=== PATIENT | female | born 1940 | race African-American/Black ===

== ENCOUNTER 2021-03-21 14:17 | Outpatient (CLI) | payer MEDICARE, MEDICAID, SELFPAY ==
--- NOTE | ~2021-03-21 | CT_ITS ---
EXAMINATION: CT shoulder RT wo con DATE: 03/21/2021 14:44 INDICATION: Right shoulder pain. TECHNIQUE: Computed tomography (CT) of the right shoulder was performed without intravenous contrast. Automated exposure control and iterative reconstruction technique were employed. The dose-length pro duct was 471.99 mGy-cm. COMPARISON: Right shoulder radiographs 03/06/21 FINDINGS: Calcified right hilar lymph nodes are consistent with old granulomatous disease. Partially visualized is a multinodular goiter. Bone alignment is normal. No fracture. There is severe osteoarth ritis of glenohumeral joint including bone volume loss of the glenoid and humeral head. There is reece re acromioclavicular joint osteoarthritis. There is narrowing of the subacromial space, consistent wi th rotator cuff tear. There is volume loss and severe fatty atrophy of supraspinatus and infraspinatu s muscle bellies. There is a moderate-sized glenohumeral joint effusion. There is moderate subacromia l/subdeltoid bursitis. IMPRESSION: 1. Polyarticular osteoarthritis. 2. Chronic rotator cuff tear. 3. Moderate-sized glenohumeral joint effusion and moderate subacromial/subdeltoid bursitis. Reviewed, dictated and finalized at location A. IMPRESSION: 1. Polyarticular osteoarthritis. 2. Chronic rotator cuff tear. 3. Moderate-sized glenohumeral joint effusion and moderate subacromial/subdelto id bursitis.
== END 2021-03-21 14:18 | disposition home or self-care (01) ==
LOC: ANHIMG 14:21
PROVIDERS: PCP Family Medicine; Visit Provider Orthopaedic Surgery
DX: M19.011 Primary osteoarthritis, right shoulder (principal); M75.101 Unspecified rotator cuff tear or rupture of right shoulder, not specified as traumatic; M25.411 Effusion, right shoulder
CPT/HCPCS: 73200

== ENCOUNTER 2021-04-17 07:56 | Outpatient (CLI) | payer MEDICARE, MEDICAID, SELFPAY ==
--- NOTE | 2021-04-17 09:10 | ECG_ITS ---
Measurements Intervals [place] Rate: 87 P: 47 ME: 184 QRS: -1 QRSD: 105 T: 43 QT: 303 QTc: 365 Interpretive Statements SINUS RHYTHM ATRIAL PREMATURE COMPLEXES EARLY PRECORDIAL R/S TRANSITION NONSPECIFIC ST & T-WAVE ABNORMALITY- HIGH LATERAL LEADS BASELINE ARTIFACT- I, II, III, AVR, AVL, AVF BORDERLINE ECG Electronically Signed On 04-17-2021 9:50:20 CDT by Fercho Correia D.O.
[2021-04-17 10:30] LABS: Basophils Absolute Auto 0.1 K/mm3 (0.0-0.1); Basophils Percent Auto 1.1 % (0.2-1.2); Eosinophils Absolute Auto 0.3 K/mm3 (0-0.3); Eosinophils Percent Auto 4.4 % (0-4.4); Hematocrit 32.5 % (37.0-47.0); Hemoglobin 10.4 g/dL (12.0-15.0); Immature Granulocyte Absolute 0.02 K/mm3 (0.00-0.031); Immature Granulocyte Percent A 0.3 % (0-0.5); Lymphocytes Percent Auto 39.3 % (18.3-44.2); Mean Corpuscular Hemoglobin 26.1 pg (26-34); Mean Corpuscular Volume 81.5 fl (80-100); Mean Platelet Volume 9.4 fl (7.4-10.4); Monocytes Absolute Auto 0.4 K/mm3 (0.1-0.6); Monocytes Percent Auto 6.7 % (2.6-8.5); Neutrophils Absolute Auto 2.9 K/mm3 (1.3-6.7); Neutrophils Percent Auto 48.2 % (45.5-73.1); Platelet Count Result 379 k/mm3 (150-375); Red Blood Count 3.99 M/mm3 (4.2-5.4); Red Cell Distribution Width 16.5 % (11.5-14.5); White Blood Count 6.1 K/mm3 (4.5-10.0)
[2021-04-17 10:42] LABS: Anion Gap 9 mmol/L (8-16); Blood Urea Nitrogen 13 mg/dL (7-17); Calcium 10.2 mg/dL (8.4-10.2); Carbon Dioxide 33 mmol/L (22-30); Chloride 95 mmol/L (98-107); Estimated Glomerular Filt Rate > 60; Glucose 98 mg/dL (65-110); Sodium 137 mmol/L (137-145)
== END 2021-04-17 07:57 | disposition home or self-care (01) ==
LOC: ANHSURGERY 08:00
PROVIDERS: Anesthesiology; PCP Family Medicine; Visit Provider Orthopaedic Surgery
DX: M12.811 Other specific arthropathies, not elsewhere classified, right shoulder (principal); I10 Essential (primary) hypertension; Z01.818 Encounter for other preprocedural examination; R94.31 Abnormal electrocardiogram [ECG] [EKG]
CPT/HCPCS: 36415; 80048; 85025; 87081; 93005

== ENCOUNTER → 2021-05-02 02:38 | Outpatient (CLI) | payer MEDICARE, MEDICAID, SELFPAY ==
[2021-05-02 18:17] LABS: SARS-CoV-2 RNA PCR Positive
== END ==
PROVIDERS: PCP Family Medicine; Visit Provider Orthopaedic Surgery
DX: U07.1 COVID-19 (principal)
CPT/HCPCS: C9803; U0003; U0005

== ENCOUNTER 2021-08-04 12:01 | Outpatient (CLI) | payer MEDICARE, SELFPAY ==
[2021-08-04 12:38] LABS: Basophils Absolute Auto 0.1 K/mm3 (0.0-0.1); Basophils Percent Auto 1.2 % (0.2-1.2); Eosinophils Absolute Auto 0.2 K/mm3 (0-0.3); Eosinophils Percent Auto 3.8 % (0-4.4); Hematocrit 34.8 % (37.0-47.0); Hemoglobin 11.4 g/dL (12.0-15.0); Immature Granulocyte Absolute 0.02 K/mm3 (0.00-0.031); Immature Granulocyte Percent A 0.3 % (0-0.5); Lymphocytes Absolute Auto 2.44 K/mm3 (0.9-3.2); Lymphocytes Percent Auto 42.2 % (18.3-44.2); Mean Corpuscular HGB Conc 32.8 g/dl (32-36); Mean Corpuscular Volume 82.3 fl (80-100); Mean Platelet Volume 9.1 fl (7.4-10.4); Monocytes Absolute Auto 0.4 K/mm3 (0.1-0.6); Monocytes Percent Auto 6.6 % (2.6-8.5); Neutrophils Absolute Auto 2.7 K/mm3 (1.3-6.7); Neutrophils Percent Auto 45.9 % (45.5-73.1); Platelet Count Result 342 k/mm3 (150-375); Red Blood Count 4.23 M/mm3 (4.2-5.4); Red Cell Distribution Width 16.4 % (11.5-14.5); White Blood Count 5.8 K/mm3 (4.5-10.0)
[2021-08-04 12:53] LABS: Anion Gap 8 mmol/L (8-16); Blood Urea Nitrogen 30 mg/dL (7-17); Carbon Dioxide 31 mmol/L (22-30); Chloride 101 mmol/L (98-107); Estimated Glomerular Filt Rate > 60; Glucose 112 mg/dL (65-110); Potassium 4.3 mmol/L (3.4-5.0); Sodium 140 mmol/L (137-145)
== END 2021-08-04 12:02 | disposition home or self-care (01) ==
LOC: ANHSURGERY 12:06
PROVIDERS: Anesthesiology; PCP Family Medicine; Visit Provider Orthopaedic Surgery
DX: M12.811 Other specific arthropathies, not elsewhere classified, right shoulder (principal); Z79.899 Other long term (current) drug therapy; Z01.818 Encounter for other preprocedural examination
CPT/HCPCS: 36415; 80048; 85025; 86850; 86900; 86901; 87081

== ENCOUNTER → 2021-08-05 00:05 | Outpatient (CLI) | payer MEDICARE, SELFPAY ==
[2021-08-05 17:39] LABS: SARS-CoV-2 RNA PCR Negative
== END ==
PROVIDERS: PCP Family Medicine; Visit Provider Orthopaedic Surgery
DX: Z01.812 Encounter for preprocedural laboratory examination (principal); Z20.822 Contact with and (suspected) exposure to COVID-19
CPT/HCPCS: C9803; U0003; U0005

== ENCOUNTER 2021-08-08 01:53 | Day surgery (SDC) | payer OTHER, SELFPAY ==
[2021-04-17 08:08] VITALS: BMI 32.0
[2021-04-17 08:35] VITALS: BP 136/63; PULSE 91; RESP 16; TEMP 36.7; O2SAT 99
[2021-08-03 09:38] VITALS: BMI 32.0
--- NOTE | 2021-08-03 09:55 | PC.NURSE ---
Addendum entered by Viktoria Hartmann RN 08/03/21 10:02: covid test 08/05/21 @ 0950 Original Note: Report to the Outpatient Waiting Room, entrance under the green pavilion located off [facility], at time _0630__ on date _08/08/21__. OR Time: _0830__. - You and your visitor will be asked a series of questions to screen for COVID 19 for your protection. - A mask is required within the hospital. - Only one visitor is allowed at this time. Patient visitors will be guided where to wait when not with patient. Preoperative COVID Testing Requirements: No COVID Test needed if: (proof is required; if not received patient will have Rapid Test prior to entry) - Patient has received COVID Vaccine at least 14 days prior to procedure date or - Patient has positive COVID test result within last 90 days of surgery date. COVID Test needed if above criteria is not met If not COVID vaccinated a COVID test must be conducted within 72 hours of surgery and patient is asked to isolate self from time of testing until procedure. You will go to the [facility] for your COVID testing. The [facility] site is located at the corner of [address] [facility]. COVID TEST SCHEDULED FOR 08/05/21 You will only be called if COVID results are positive and your surgeon may reschedule your elective surgery date. Patients may have clear liquids (water, carbonated beverages, clear teas, apple juice) until 3 hours prior to surgery with a maximum of 20 ounces. - No food from midnight until time of surgery - Infants may have breast milk until 4 hours before surgery, formula 6 hours prior to surgery. - Children will be allowed to drink immediately following surgery. If applicable, please bring a bottle or sippy cup to assist with drinking. Juice, water, soda, and popsicles are readily available. For infants on formula, please bring formula the day of surgery. Pacifiers are allowed. Take the following medications with a SIP of water the morning of surgery: _AMLODIPINE, CYCLOBENZAPRINE & PAIN PILL IF NEEDED__ Medications to discontinue per physician __ALL VITAMINS & SUPPLEMENTS Date to take last dose_08/04/21 Please no make-up, nail romansh, hairspray, perfume, deodorant, or body powder the day of surgery. No jewelry (including any body piercings) or valuables the day of surgery, leave them at home. Please take a shower or bath the night before, or the morning of, surgery with an antibacterial soap. Wear comfortable, loose fitting clothing. Children are encouraged to wear pajamas. - Jewelry must be removed prior to entering the operating room. Rings and piercings that are not removed may be cut off. - The hospital will not accept responsibility for valuables. - Please leave all valuables, including medications, at home the day of surgery. If you are going home after surgery, a licensed hazmat cdl a driver must drive you home. - NO public transportation without another adult. - We recommend that an adult stay with you for 24 hours following discharge. - We also recommend that you do not drive, make important decision, drink alcoholic beverages, or take any drugs that were not prescribed by your health care provider for at least 24 hours after your discharge time. For Pediatric surgeries, we recommend two adults accompany the child home (only one inside the building at this time). Follow any additional instructions given to you from your surgeon. Telephone instructions given to __PT___and asked if any additional questions and then verbalized understanding. Patient advised to call surgeon office or pre surgery nurse liaison [phone] if any additional questions.
[2021-08-08] VITALS (14 sets, daily range): BP systolic 116–137; BP diastolic 51–98; PULSE 55–106; RESP 16–20; TEMP 36.1–37.1; O2SAT 93–100
--- NOTE | ~2021-08-08 | XR_ITS ---
EXAMINATION: XR shoulder RT min 2V DATE: 08/08/2021 11:36 INDICATION: Total right shoulder arthroplasty. Postop. TECHNIQUE: 2 views of right shoulder were obtained. COMPARISON: Right shoulder radiograph 03/06/2021 FINDINGS: There is a reverse [id number]-[id number]-[id number] total right shoulder arthroplasty in near-anatomic align ment. No fracture. There is gas in the soft tissues, consistent with recent surgery. IMPRESSION: 1. Reverse nbln-idf-lesuyw total right shoulder arthroplasty in near-anatomic alignment. Reviewed, dictated and finalized at location A. ERCIAL PROJECT MANAGER IMPRESSION: 1. Reverse lvgb-[id number]-[id number] total right shoulder arthroplasty in near-anatomic a lignment.
[2021-08-08] MEDS: LACTATED RINGERS 1,000 ML 30 ML IV CONT ×2 (06:50→11:16)
[2021-08-08] MEDS: TRANEXAMIC ACID 1,000MG/ISO100 1,000 MG/100 ML BAG 200 MG IVPB (06:52)
--- NOTE | 2021-08-08 07:22 | P.PNAN_ITS ---
Anes - Initial Pre Proc Eval Procedure: Operation Date: 05/05/21 08:00 Proposed Procedures p Right Reverse Total Shoulder Arthroplasty - Joe Nunez MD Operation Date: 08/08/21 08:30 Proposed Procedures p Right Reverse Total Shoulder Arthroplasty - Joe Nunez MD Date/Time: 08/08/21 07:22 Surgeon: Joe Nunez MD Pre Op Diagnosis: right rotator cuff arthropathy Patient Data Age: 81 Gender: F Height: 1.77 m Weight: 99.8 kg Last Vital Signs Temp 36.7 C 04/17/21 08:35 Pulse 91 04/17/21 08:35 Resp 16 04/17/21 08:35 BP 136/63 04/17/21 08:35 Pulse Ox 99 04/17/21 08:35 Allergies Allergy/AdvReac Type Severity Reaction Status Date / Time No Known Allergies Allergy Verified 08/08/21 07:19 Home Medications Medication Instructions Recorded Confirmed Type amlodipine 10 mg PO DAILY 04/17/21 08/08/21 History ascorbic acid (vitamin C) 1 g PO DAILY 04/17/21 08/08/21 History celecoxib 200 mg PO DAILY 04/17/21 08/08/21 History cyclobenzaprine 10 mg PO BID 04/17/21 08/08/21 History garlic 300 mg PO DAILY 04/17/21 08/08/21 History hydrochlorothiazide 25 mg PO DAILY 04/17/21 08/08/21 History hydrocodone-acetaminophen 1 tablet PO PRN PRN 04/17/21 08/08/21 History lisinopril 20 mg PO DAILY 04/17/21 08/08/21 History vitamin A-vitamin D3 1 cap PO DAILY 04/17/21 08/08/21 History vitamin B complex [B Complex] 1 cap PO DAILY 04/17/21 08/08/21 History vitamin E 45 mg PO DAILY 04/17/21 08/08/21 History Patient hx anesthesia problems: none Family hx anesthesia problems: none Results Review: All pre-operative results and documents have been reviewed as part of the pre-operative evaluation. [facility]LY [facility] Past Medical History Medical History (Updated 08/08/21 @ 07:23 by Pedro Soria MD) HTN (hypertension) Obesity Rotator cuff arthropathy of left shoulder Rotator cuff arthropathy of right shoulder Surgical History Surgical History History of knee replacement Family History Family History Mother Family history of arthritis Social History Social History Smoking status: Never smoker Second hand tobacco smoke exposure: No Additional smoking assessment comments: DENIES ALL FORMS OF TOBACCO USE Alcohol intake: never Substance use: never Living arrangements: alone Spiritual care concerns: No Anes - Eval Final PreProcedure Day of Procedure 08/08/21 07:22 Patient weight: obese Heart: regular rate and rhythm Lungs: clear to auscultation Airway: Mallampati scale class II Neurological: alert and oriented Last oral intake: >/= 8 hours ASA classification: III Emergent: no Anesthetic plan: proceed Anesthesia type and monitoring: general ETT and standard monitoring Results Review: All pre-operative results and documents have been reviewed as part of the pre-operative evaluation. Informed Consent: The patient's anesthetic plan and its attendant risks and benefits were discussed with the patient/family/POA. Questions were solicited and answers provided to the satisfaction of the patient/family/POA.
--- NOTE | 2021-08-08 08:08 | WPDHPUPDATE1 ---
History and Physical Update Update Date/Time: 08/08/21 08:08 History and Physical has been reviewed, including an updated exam of the patient. There are NO changes in the patient's condition. Risks, benefits, and alternatives have been discussed and questions answered. Patient agrees to proceed with procedure.
--- NOTE | 2021-08-08 08:25 | WPDANESPNB ---
Anes - Peripheral Nerve Block Date/Time: 08/08/21 08:25 I have discussed with the patient/family/POA the placement of a peripheral nerve block for post-operative pain management, including associated risks, benefits, complications, and side effects. Alternative methods of post-operative analgesia were detailed. Questions were solicited and answers provided to the satisfaction of the patient/family/POA. Time-Out: A pre-procedural Time-Out was completed immediately before starting the procedure and confirmed: Patient Identification, Site, Procedure, Patient Position and the Availability of Requisite Equipment. Clinical Indications: Acute post-operative pain management requested by the operative surgeon. Nerve Block Insertion Note Anes-nerve block: interscalene right Patient position: supine Skin prep: chlorhexidine Needle: 22 gauge, stimulating, insulated echogenic needle. Needle length: 50 mm Technique: ultrasound Injectate: bupivacaine 0.5% with epi 5 mcg/ml (30cc no epi) and dexamethasone (mg) (8) Observations: tolerated well Complications: none Procedure start time:: 805 Procedure end time:: 811
[2021-08-08] MEDS: ceFAZolin 2 GM/D5W 50 ML 2 GM/50 ML BAG IVPB ×3 (08:30→23:53)
[2021-08-08] MEDS: VANCOMYCIN HCL 1,000 MG VIAL 1000 MG TOPICAL (11:02)
[2021-08-08] MEDS: ACETAMINOPHEN 500 MG TABLET 1000 MG PO ×3 (14:31→23:54)
--- NOTE | 2021-08-08 14:38 | ADMGEN ---
This patient, Cortney Diaz, was admitted to 2 Medical Room 257-01. Patient/family oriented to hospital policies and general routines including ID bracelet, bed and alarms, visiting hours, pain management, procedures, bathroom and other care routines, personal items, smoking policy, room service/diet, and visiting hours. Information on how to activate the Rapid Response Team has been discussed. Patient/Family are encouraged to report perceived risks to care and to ask questions if they do not understand what they are told or what they should do.
[2021-08-08] MEDS: CYCLOBENZAPRINE HCL 10 MG TABLET PO (16:31)
[2021-08-08] MEDS: DOCUSATE SODIUM 100 MG CAPSULE PO (16:31)
[2021-08-08] MEDS: ASPIRIN 81 MG ENTERIC TABLET PO (16:31)
--- NOTE | 2021-08-08 16:50 | W.PM.PROC2 ---
Procedure Note - Detailed Date of Procedure 08/08/21 Pre-op Diagnosis Right rotator cuff arthropathy. Post-op Diagnosis same Procedure Performed Reverse total shoulder arthroplasty, right shoulder. Surgeon Joe Nunez MD Buffing Machine Operator Kerline Haynes PA-C Anesthesia general and regional Findings Moderate erosive changes. Massive tear of the supra and infraspinatus. Teres minor intact. Bio-RSA Technique utilized with bone graft from the humeral head applied behind the glenoid base plate. Wedge-shaped graft used to supplement the superior and posterosuperior glenoid. Asymmetric reaming slightly inferior and anterior. Bone quality fair. Trialing confirmed appropriate tension and reduction capability with the lateralized glenosphere. The humeral tray was placed at 12:00. Description of Procedure The patient was given an interscalene block in the preoperative area. Preoperative antibiotics were given. The patient was transferred to the operating room and a general anesthetic was administered. The beach chair position was used at 45 degrees. All bony prominences were padded. The head was carefully stabilized on the [facility] header dock. A sterile prep and drape was performed in the usual manner with Chloraprep. A longitudinal incision was created at the anterior shoulder just lateral to the deltopectoral interval. Careful dissection was performed to expose the interval and protect the cephalic vein. The vein was retracted medially. The upper border of the pectoralis was released. Anterior circumflex vessel branches were suture ligated. The biceps was tenotomized and later tenodesed. A subscapularis peel was performed. The inferior capsule was released, exposing the humeral head. Osteophytes were removed. Care was taken to stay on bone to protect the axillary nerve. The anatomic head cut was taken with the oscillating saw. Sounding and broaching was performed. The neck anteversion and inclination were carefully assessed. Head sizing and offset were determined.The cut protector was placed, and attention was turned to the glenoid. Retractors were placed. Releases were carried out for exposure. The subscapularis was mobilized, the inferior capsule and long head of triceps released, and the superior and middle glenohumeral ligaments released as well. Labral tissue was resected as needed. The sizing template was used to assess the baseplate position low on the glenoid. A guide pin was placed. The two step reaming system was used. Minimal reaming was used to accomplish a flat surface without violating the subchondral bone. Version and inclination were corrected according to preoperative templating. The central post was drilled. The real component was impacted into position. Supplemental screws were placed. The glenosphere was trialed. The lateralized glenosphere was placed with the locking screw. The real humeral stem and tray, and insert were impacted into position. The shoulder was copiously irrigated periodically with pulsatile lavage. The shoulder was reduced and the subscapularis repaired with number 5 Ethibond suture modified radha Emilio sutures. The biceps tenodesis was incorporated with the pectoralis tendon repair. The deltopectoral space was reapproximated with number 2 Vicryl. The remained tissue was closed with 0 Quill and 2-0 Quill running suture and steri-strips. A sterile dressing and shoulder immobilizer was placed. The patient was transferred to the recovery room. Implants Tisha Aequalis reversed glenoid base plate 29 mm, reversed insert 6mm thickness; Aequalis Ascend Flex humeral stem size 3B. Aequalis Reversed II glenoid sphere 36 diameter high offset; Reversed tray low offset Estimated Blood Loss -150.0 Drains No Pathology none sent Complications No immediate complications Condition stable Disposition PACU
[2021-08-08] MEDS: ONDANSETRON INJ 4 MG/2 ML VIAL IV PUSH (18:27)
[2021-08-08] MEDS: FAMOTIDINE 20 MG TABLET PO (20:44)
[2021-08-09 06:23] VITALS: BP 143/64; PULSE 98; RESP 16; TEMP 37.2; O2SAT 97
[2021-08-09] MEDS: ACETAMINOPHEN 500 MG TABLET 1000 MG PO ×2 (07:16→12:22)
--- NOTE | 2021-08-09 07:24 | WPDANESPN ---
Anes - Prog Note Post-Op Date/Time: 08/09/21 07:24 Cardiovascular status: normal Respiratory status: normal Airway patency: baseline Mental status: baseline Post-Op hydration status: normal Vital Signs: Last Vital Signs Temp 37.2 C 08/09/21 06:23 Pulse 98 08/09/21 06:23 Resp 16 08/09/21 06:23 BP 143/64 H 08/09/21 06:23 Pulse Ox 97 08/09/21 06:23 Pain Score (VAS): 2 I/O: Intake & Output 08/08/21 08/08/21 08/09/21 15:59 23:59 07:59 Intake Total 440 730 350 Balance 440 730 350 Post-procedural complaints: none Patient Feedback: Patient satisfied with anesthetic care.
[2021-08-09] MEDS: FAMOTIDINE 20 MG TABLET PO (08:10)
[2021-08-09] MEDS: CELECOXIB 200 MG CAPSULE PO (08:10)
[2021-08-09] MEDS: lisinopriL 20 MG TABLET PO (08:10)
[2021-08-09] MEDS: amLODIPine BESYLATE 5 MG TABLET 10 MG PO (08:11)
[2021-08-09] MEDS: DOCUSATE SODIUM 100 MG CAPSULE PO (08:12)
[2021-08-09] MEDS: CYCLOBENZAPRINE HCL 10 MG TABLET PO (08:12)
[2021-08-09] MEDS: hydroCHLOROthiazide 25 MG TABLET PO (08:12)
[2021-08-09] MEDS: oxyCODONE HCL (*CRX) 5 MG TAB IR 10 MG PO (08:12)
[2021-08-09] MEDS: ceFAZolin 2 GM/D5W 50 ML 2 GM/50 ML BAG IVPB (08:12)
[2021-08-09] MEDS: ASPIRIN 81 MG ENTERIC TABLET PO (08:12)
--- NOTE | 2021-08-09 08:36 | P.DS_ITS ---
DS: Admitting Diagnosis Discharge Date 08/09/21 Admitting Diagnosis Rotator cuff arthropathy. DS: Discharge Diagnosis Discharge Diagnosis (1) Status post reverse total arthroplasty of right shoulder: Code(s): Z96.611 - Presence of right artificial shoulder joint Status: Acute Assessment and Plan: Postop day 1: Right reverse total shoulder arthroplasty. Patient tolerated procedure well. No complications. Pain manageable with pain medication. No numbness or tingling. We had a lengthy discussion regarding postoperative wound care, limitations, expectations, and exercises. Patient shows good understanding. She has had initial physical therapy and is tolerating it well. DVT prophylaxis: 81 mg baby aspirin b.i.d. for 14 days. Compression socks for 3 weeks. Frequent walks. Pain medication: Percocet. Continue home Celebrex. Patient has followup appointment with Dr. Nunez in 3 weeks. DS: Summary Hospital Course Hospital Course: Patient tolerated procedure well. Participated well with PT and OT. Status at Discharge Functional status at discharge: independent ambulation Overall status at discharge: patient is progressing back to baseline Time Spent with Patient Time attestation: Total time spent providing and/or coordinating discharge services: Exam Narrative: Overweight 81 y/o Female. Resting comfortably in bed. Wearing sling. Dressing dry and intact with no drainage. Moderate swelling. Moderate ecchymosis. No erythema. No hematoma. Range of motion limited due to pain. Calf nontender. Neurologic status intact. No varicosities. Distal pulses palpable. Discharge Plan Discharge Patient Disposition: Home, Self-Care Discharge Instructions: See green instruction sheet Patient Instructions: Pain Management (DC), Precautions after Total Joint Replacement Surgery (DC), Shoulder Immobilizer (DC) Follow-up/Referrals: Kerline Haynes PA [Physician Fermenting Cellar Dropper] - Discharge Medications: New aspirin 81 mg tablet,delayed release (DR/EC) 81 mg PO BID 14 Days Qty: 28 RF: 0 oxycodone-acetaminophen 5-325 mg tablet 1 - 2 tablet PO Q4-6H MDD 6 PRN (Reason: pain) Qty: 30 RF: 0 Continued lisinopril 10 mg tablet 20 mg PO DAILY RF: 0 hydrochlorothiazide 12.5 mg capsule 25 mg PO DAILY RF: 0 cyclobenzaprine 10 mg tablet 10 mg PO BID RF: 0 amlodipine 10 mg tablet 10 mg PO DAILY RF: 0 hydrocodone-acetaminophen 10-325 mg tablet 1 tablet PO PRN PRN (Reason: Pain) RF: 0 celecoxib 200 mg capsule 200 mg PO DAILY RF: 0 vitamin A-vitamin D3 5,000-400 unit Capsule 1 cap PO DAILY RF: 0 vitamin B complex Capsule 1 cap PO DAILY RF: 0 ascorbic acid (vitamin C) 1,000 mg Tablet 1 g PO DAILY RF: 0 vitamin E 400 unit Tablet 45 mg PO DAILY RF: 0 garlic 300 mg Tablet 300 mg PO DAILY RF: 0
== END 2021-08-09 12:42 | disposition home or self-care (01) ==
LOC: ANHSURGERY 05:48 → ANH2MED 12:55
PROVIDERS: PCP Family Medicine; Visit Provider Orthopaedic Surgery
PROC: (CPT 23472; principal; 2021-08-08 08:30)
DX: M12.811 Other specific arthropathies, not elsewhere classified, right shoulder (principal); G89.18 Other acute postprocedural pain; I10 Essential (primary) hypertension; E66.9 Obesity, unspecified; Z68.33 Body mass index [BMI] 33.0-33.9, adult
CPT/HCPCS: 23472; 64415; 36415; 73030; 80048; 85025; 86850; 86900; 86901; 87081; 97110; 97116; 97161; 97165; 97530; 97535; A4565; A9270; C1776; C9803; J0171; J0330; J0690; J1100; J1885; J2250; J2270; J2370; J2405; J2704; J2795; J3010; J3370; J7120; U0003; U0005

== ENCOUNTER 2021-11-08 12:56 | Outpatient (CLI) | payer MEDICARE, MEDICAID, SELFPAY ==
--- NOTE | ~2021-11-08 | CT_ITS ---
EXAMINATION: CT shoulder LT wo con DATE: 11/08/2021 13:27 INDICATION: Other specific arthropathies, not elsewhere classified. TECHNIQUE: Computed tomography (CT) of the left shoulder was performed without intravenous contrast. Automated exposure control and iterative reconstruction technique were employed. The dose-length prod uct was 502.51 mGy-cm. COMPARISON: Left shoulder radiographs 03/06/2021 FINDINGS: The acromion undersurface is curved in morphology (type II). There is superior subluxation of humeral head with narrowing of the subacromial space and remodeling of the acromion, consistent wi th chronic rotator cuff tear with cuff arthropathy. There is severe osteoarthritis of glenohumeral ilene int and acromio clavicular joint. There is a large glenohumeral joint effusion communicating with sub acromial/subdeltoid bursitis. There is moderate fatty atrophy of supraspinatus and infraspinatus musc le bellies. IMPRESSION: 1. Severe osteoarthritis of glenohumeral joint and acromioclavicular joint. 2. Chronic rotator cuff tear with cuff arthropathy. 3. Large glenohumeral joint effusion. Reviewed, dictated and finalized at location E. INSTALLER
== END 2021-11-08 12:57 | disposition home or self-care (01) ==
LOC: ANHIMG 12:57
PROVIDERS: PCP Family Medicine; Visit Provider Orthopaedic Surgery
DX: M75.102 Unspecified rotator cuff tear or rupture of left shoulder, not specified as traumatic (principal); M25.412 Effusion, left shoulder; M19.012 Primary osteoarthritis, left shoulder
CPT/HCPCS: 73200

== ENCOUNTER 2021-11-29 13:51 | Outpatient (CLI) | payer MEDICARE, MEDICAID, SELFPAY ==
[2021-11-29 15:03] LABS: Basophils Absolute Auto 0.1 K/mm3 (0.0-0.1); Eosinophils Absolute Auto 0.4 K/mm3 (0-0.3); Eosinophils Percent Auto 5.8 % (0-4.4); Hematocrit 37.3 % (37.0-47.0); Hemoglobin 11.8 g/dL (12.0-15.0); Immature Granulocyte Absolute 0.02 K/mm3 (0.00-0.031); Immature Granulocyte Percent A 0.3 % (0-0.5); Lymphocytes Percent Auto 41.4 % (18.3-44.2); Mean Corpuscular HGB Conc 31.6 g/dl (32-36); Mean Corpuscular Hemoglobin 26.4 pg (26-34); Mean Corpuscular Volume 83.4 fl (80-100); Mean Platelet Volume 9.1 fl (7.4-10.4); Monocytes Absolute Auto 0.5 K/mm3 (0.1-0.6); Monocytes Percent Auto 7.2 % (2.6-8.5); Neutrophils Percent Auto 44.3 % (45.5-73.1); Platelet Count Result 327 k/mm3 (150-375); Red Blood Count 4.47 M/mm3 (4.2-5.4); Red Cell Distribution Width 16.9 % (11.5-14.5); White Blood Count 6.8 K/mm3 (4.5-10.0)
[2021-11-29 15:22] LABS: Anion Gap 10 mmol/L (8-16); Blood Urea Nitrogen 31 mg/dL (7-17); Calcium 9.4 mg/dL (8.4-10.2); Carbon Dioxide 28 mmol/L (22-30); Chloride 103 mmol/L (98-107); Estimated Glomerular Filt Rate > 60; Glucose 111 mg/dL (65-110); Potassium 4.3 mmol/L (3.4-5.0); Sodium 141 mmol/L (137-145)
== END 2021-11-29 13:52 | disposition home or self-care (01) ==
LOC: ANHSURGERY 13:54
PROVIDERS: Anesthesiology; PCP Family Medicine; Visit Provider Orthopaedic Surgery
DX: M25.512 Pain in left shoulder (principal); Z79.899 Other long term (current) drug therapy; Z01.818 Encounter for other preprocedural examination
CPT/HCPCS: 36415; 80048; 85025; 87081

== ENCOUNTER → 2021-12-25 02:42 | Outpatient (CLI) | payer MEDICARE, MEDICAID, SELFPAY ==
[2021-12-25 11:31] LABS: SARS-CoV-2 RNA PCR Negative
== END ==
PROVIDERS: PCP Family Medicine; Visit Provider Orthopaedic Surgery
DX: Z01.812 Encounter for preprocedural laboratory examination (principal); Z20.822 Contact with and (suspected) exposure to COVID-19
CPT/HCPCS: C9803; U0003; U0005

== ENCOUNTER 2021-12-28 01:01 | Day surgery (SDC) | payer MEDICARE, MEDICAID, SELFPAY ==
--- NOTE | 2021-11-29 14:00 | PC.NURSE ---
Report to the Outpatient Waiting Room, entrance under the green pavilion located off [facility], at time _0600_ on date _12/28/21_. OR Time: _0730_. - You and your visitor will be asked a series of questions to screen for COVID 19 for your protection. - A mask is required within the hospital. One visitor will be allowed to accompany the patient into the hospital. Patients visitor will be instructed to remain with patient at all times or leave the building. We will allow the visitor to come back to the postoperative area when patient is ready. Preoperative COVID Testing Requirements: COVID TEST SCHEDULED FOR 12/25/21 @ 0930 COVID test must be conducted within 72 hours of surgery and patient is asked to isolate self from time of testing until procedure. You will go to the [facility] for your COVID testing. The [facility] Testing site is located at the corner of [address] from [facility]. You will only be called if COVID results are positive and your surgeon may reschedule your elective surgery date. Patients may have clear liquids (water, carbonated beverages, clear teas, apple juice) until 3 hours prior to surgery (0430 AM) with a maximum of 20 ounces. - No food from midnight until time of surgery Take the following medications with a SIP of water the morning of surgery: _AMLODIPINE, CYCLOBENZAPRINE_ Medications to discontinue per ANESTHESIA - ALL VITAMINS AND SUPPLEMENTS 3 DAYS PRIOR TO SURGERY, LAST DOSE TO BE TAKEN ON 12/24/21 Please no make-up, nail english, hairspray, perfume, deodorant, or body powder the day of surgery. No jewelry (including any body piercings) or valuables the day of surgery, leave them at home. Please take a shower or bath the night before, or the morning of, surgery with an antibacterial soap. Wear comfortable, loose fitting clothing. Children are encouraged to wear pajamas. - Jewelry must be removed prior to entering the operating room. Rings and piercings that are not removed may be cut off. - The hospital will not accept responsibility for valuables. - Please leave all valuables, including medications, at home the day of surgery. If you are going home after surgery, a licensed regional tanker truck driver must drive you home. - NO public transportation without another adult. - We recommend that an adult stay with you for 24 hours following discharge. - We also recommend that you do not drive, make important decision, drink alcoholic beverages, or take any drugs that were not prescribed by your health care provider for at least 24 hours after your discharge time. Follow any additional instructions given to you from your surgeon. Instructions given to ____PT and asked if any additional questions and then verbalized understanding. Patient advised to call surgeon office or pre surgery nurse liaisonMAGGIE [phone] if any additional questions.
[2021-11-29 14:18] VITALS: BP 160/84; PULSE 96; RESP 20; TEMP 37.1; O2SAT 100; BMI 35.2
--- NOTE | 2021-12-27 15:16 | P.PNAN_ITS ---
Anes - Initial Pre Proc Eval Procedure: Operation Date: 12/28/21 07:30 Proposed Procedures p Reversed Left Total Shoulder Arthroplasty - Joe Nunez MD Date/Time: 12/27/21 15:16 Surgeon: Joe Nunez MD Pre Op Diagnosis: Prim O.A. Left Shoulder Patient Data Age: 81 Gender: F Height: 1.75 m Weight: 108 kg Last Vital Signs Temp 37.1 C 11/29/21 14:18 Pulse 96 11/29/21 14:18 Resp 20 11/29/21 14:18 BP 160/84 H 11/29/21 14:18 Pulse Ox 100 11/29/21 14:18 Allergies Allergy/AdvReac Type Severity Reaction Status Date / Time No Known Allergies Allergy Verified 12/28/21 06:24 Home Medications Medication Instructions Recorded Confirmed Type amlodipine 10 mg PO DAILY 04/17/21 12/28/21 History ascorbic acid (vitamin C) 1 g PO DAILY 04/17/21 12/28/21 History celecoxib 200 mg PO DAILY 04/17/21 12/28/21 History garlic 300 mg PO DAILY 04/17/21 12/28/21 History hydrochlorothiazide 25 mg PO DAILY 04/17/21 12/28/21 History lisinopril 20 mg PO DAILY 04/17/21 12/13/21 History vitamin A-vitamin D3 1 cap PO DAILY 04/17/21 12/28/21 History vitamin B complex 1 cap PO DAILY 04/17/21 12/28/21 History vitamin E 45 mg PO DAILY 04/17/21 12/28/21 History cyclobenzaprine 10 mg PO DAILY 12/28/21 12/28/21 History Patient hx anesthesia problems: none Family hx anesthesia problems: none Results Review: All pre-operative results and documents have been reviewed as part of the pre-operative evaluation. [facility] Past Medical History Medical History HTN (hypertension) Obesity Rotator cuff arthropathy of left shoulder Rotator cuff arthropathy of right shoulder Surgical History Surgical History History of knee replacement Family History Family History Mother Family history of arthritis Social History Social History Smoking status: Never smoker Second hand tobacco smoke exposure: No Additional smoking assessment comments: PT DENIES ALL FORMS OF TOBACCO USE Alcohol intake: never Substance use: never Substance use type: does not use Living arrangements: alone Spiritual care concerns: No Anes - Eval Final PreProcedure Day of Procedure 12/27/21 15:16 Patient weight: obese Heart: regular rate and rhythm Lungs: clear to auscultation and normal air movement Airway: Mallampati scale class II Neurological: alert and oriented Last oral intake: >/= 8 hours ASA classification: III Emergent: no Anesthetic plan: proceed Anesthesia type and monitoring: general ETT Results Review: All pre-operative results and documents have been reviewed as part of the pre-operative evaluation. Informed Consent: The patient's anesthetic plan and its attendant risks and benefits were discussed with the patient/family/POA. Questions were solicited and answers provided to the satisfaction of the patient/family/POA.
[2021-12-28] VITALS (12 sets, daily range): BP systolic 90–149; BP diastolic 42–67; PULSE 79–98; RESP 10–18; TEMP 36.6–37.1; O2SAT 92–100
--- NOTE | ~2021-12-28 | XR_ITS ---
EXAMINATION: XR shoulder LT min 2V DATE: 12/28/2021 10:26 INDICATION: Reverse left total shoulder arthroplasty. TECHNIQUE: AP and transscapular Y views of the left shoulder were obtained. COMPARISON: None FINDINGS: Interval placement of a reverse left total shoulder arthroplasty which is in near-anatomic alignment. No fracture. Mild acromioclavicular osteoarthritis. Small amount of likely postoperative soft tissue gas about the left shoulder. New bandlike opacity at the left midlung zone. IMPRESSION: 1. Expected appearance post reverse left total shoulder arthroplasty. 2. New bandlike opacity in the left midlung zone suggesting discoid atelectasis although pneumonia no t excludable. Reviewed, dictated and finalized at location A. IMPRESSION: 1. Expected appearance post reverse left total shoulder arthroplasty. 2. New bandlike opacity in the left midlung zone suggesting discoid atelectasis although pneumonia not excludable.
[2021-12-28] MEDS: ACETAMINOPHEN 500 MG TABLET 1000 MG PO (06:28)
[2021-12-28] MEDS: LACTATED RINGERS 1,000 ML 30 ML IV CONT ×2 (06:39→10:14)
[2021-12-28] MEDS: TRANEXAMIC ACID 1,000MG/ISO100 1,000 MG/100 ML BAG 200 MG IVPB (07:16)
--- NOTE | 2021-12-28 07:25 | WPDHPUPDATE1 ---
History and Physical Update Update Date/Time: 12/28/21 07:25 History and Physical has been reviewed, including an updated exam of the patient. There are NO changes in the patient's condition. Risks, benefits, and alternatives have been discussed and questions answered. Patient agrees to proceed with procedure. Proceed with left reverse total shoulder arthroplasty.
[2021-12-28] MEDS: ceFAZolin 2 GM/D5W 50 ML 2 GM/50 ML BAG IVPB ×2 (07:34→16:00)
--- NOTE | 2021-12-28 07:34 | WPDANESPNB ---
Anes - Peripheral Nerve Block Date/Time: 12/28/21 07:34 I have discussed with the patient/family/POA the placement of a peripheral nerve block for post-operative pain management, including associated risks, benefits, complications, and side effects. Alternative methods of post-operative analgesia were detailed. Questions were solicited and answers provided to the satisfaction of the patient/family/POA. Time-Out: A pre-procedural Time-Out was completed immediately before starting the procedure and confirmed: Patient Identification, Site, Procedure, Patient Position and the Availability of Requisite Equipment. Clinical Indications: Acute post-operative pain management requested by the operative surgeon. Nerve Block Insertion Note Anes-nerve block: supraclavicular left Patient position: supine Skin prep: chlorhexidine Needle: 22 gauge, stimulating, insulated echogenic needle. Needle length: 80 mm Technique: ultrasound (in plane) Injectate: bupivacaine 0.5% with epi 5 mcg/ml (20cc) Observations: tolerated well Complications: none Procedure start time:: 725 Procedure end time:: 730
[2021-12-28] MEDS: VANCOMYCIN HCL 1,000 MG VIAL 1000 MG TOPICAL (09:44)
--- NOTE | 2021-12-28 11:40 | ADMGEN ---
This patient, Cortney Diaz, was admitted to 2 Medical Room 258-01. Patient/family oriented to hospital policies and general routines including ID bracelet, bed and alarms, visiting hours, pain management, procedures, bathroom and other care routines, personal items, smoking policy, room service/diet, and visiting hours. Information on how to activate the Rapid Response Team has been discussed. Patient/Family are encouraged to report perceived risks to care and to ask questions if they do not understand what they are told or what they should do.
[2021-12-28] MEDS: SODIUM CHLORIDE 0.9% IV 1,000 ML 125 ML IV CONT (11:43)
[2021-12-28] MEDS: CYCLOBENZAPRINE HCL 10 MG TABLET PO (14:49)
[2021-12-28] MEDS: polyethylene glycoL 3350 17 GM POWD.PACK PO (14:49)
[2021-12-28] MEDS: ASPIRIN 81 MG ENTERIC TABLET PO ×2 (14:50→16:01)
[2021-12-28] MEDS: SENNA/DOCUSATE SODIUM TABLET 2 TAB PO ×2 (14:50→16:01)
[2021-12-28] MEDS: FAMOTIDINE 20 MG TABLET PO ×2 (14:50→20:13)
[2021-12-28] MEDS: CELECOXIB 200 MG CAPSULE PO (14:50)
[2021-12-28] MEDS: hydroCHLOROthiazide 25 MG TABLET PO (14:51)
[2021-12-28] MEDS: lisinopriL 20 MG TABLET PO (14:51)
[2021-12-28] MEDS: amLODIPine BESYLATE 5 MG TABLET 10 MG PO (14:51)
--- NOTE | 2021-12-28 15:49 | W.PM.PROC2 ---
Procedure Note - Detailed Date of Procedure 12/28/21 Pre-op Diagnosis Rotator cuff arthropathy, left shoulder. Post-op Diagnosis Same Procedure Performed Reverse left total shoulder arthroplasty. Surgeon Joe Nunez MD Crap Shooter Kerline Haynes PA-C Anesthesia General and Regional (Interscalene block.) Findings Severe degeneration and massive cuff tear. Good bone quality although erosion was significant in the superior and posterior quadrant. The full wedge fit very nicely according the preoperative computer templating. Three dimensional planning placed the maximum wedge augment at about 1:30 a.m. Minimal reaming was required. Good stability and purchase on bone. Description of Procedure The patient was given an interscalene block in the preoperative area. Preoperative antibiotics were given. The patient was transferred to the operating room and a general anesthetic was administered. The beach chair position was used at 45 degrees. All bony prominences were padded. The head was carefully stabilized on the [facility] barrel header. A sterile prep and drape was performed in the usual manner with ChloraPrep. A longitudinal incision was created at the anterior shoulder just lateral to the deltopectoral interval. Hydrogen peroxide was placed on the incision and then rinsed after one minute. Careful dissection was performed to expose the interval and protect the cephalic vein. The vein was retracted medially. The upper border of the pectoralis was released. Anterior circumflex vessel branches were suture ligated. The biceps was tenodesed. A subscapularis tenotomy was performed. The inferior capsule was released, exposing the humeral head. Osteophytes were removed. Care was taken to stay on bone to protect the axillary nerve. The anatomic head cut was taken with the oscillating saw. The guide pin was placed, central drilling performed, and the broach trial inserted. The neck anteversion and inclination were carefully assessed. The cut protector was placed, and attention was turned to the glenoid. Retractors were placed. Releases were carried out for exposure. The subscapularis was mobilized, the inferior capsule and long head of triceps released, and the superior and middle glenohumeral ligaments released as well. Labral tissue was resected as needed. The sizing template was used to assess the baseplate position low on the glenoid. A guide pin was placed. Minimal reaming was used to accomplish a flat surface without violating the subchondral bone. Version was corrected according to preoperative templating. The boss was drilled, and the real component was impacted into position. Supplemental locking screws were placed centrally, superiorly, and inferiorly. The glenosphere was impacted into the taper. The proximal humerus was reamed for the inset component. The humeral components were trialed. The real humeral stem, tray, and insert were impacted into position. The shoulder was copiously irrigated periodically with pulsatile lavage. The shoulder was reduced and stability confirmed. 1 gram of Vancomycin powder was placed in the joint. The biceps tenodesis was incorporated with the pectoralis tendon repair. The subscapularis was repaired back to tendon without undue tension. Multiple 2. And 5. Sutures were used. The deltopectoral space was reapproximated with number 1 Vicryl. The remaining tissue was closed with 0 Quill and 2-0 Quill running suture and steri-strips. A sterile silver occlusive dressing and shoulder immobilizer were placed. The patient was transferred to the recovery room. Physician assistant cook, Kerline Haynes PA-C, required for surgery; including patient positioning, draping, tissue retraction, maintaining instrument position, wound closure, and dressing placement. Implants Louise Tornier reverse Perform Plus shoulder system. 25 mm full wedge augmented base plate. Three locking screws. 36 mm standard glenosphere. Size 4 Ascend flex humeral com
[2021-12-29] MEDS: ceFAZolin 2 GM/D5W 50 ML 2 GM/50 ML BAG IVPB ×2 (00:09→06:38)
[2021-12-29 00:33] VITALS: BP 121/48; PULSE 87; RESP 18; TEMP 36.6; O2SAT 99
[2021-12-29 05:00] VITALS: BP 127/68; PULSE 81; RESP 20; TEMP 36.3; O2SAT 100
--- NOTE | 2021-12-29 08:42 | WPDANESPN ---
Anes - Prog Note Post-Op Date/Time: 12/29/21 08:42 Cardiovascular status: normal Respiratory status: normal Airway patency: baseline Mental status: baseline Post-Op hydration status: normal Vital Signs: Last Vital Signs Temp 36.3 C L 12/29/21 05:00 Pulse 81 12/29/21 05:00 Resp 20 12/29/21 05:00 BP 127/68 12/29/21 05:00 Pulse Ox 100 12/29/21 05:00 Pain Score (VAS): 0 I/O: Intake & Output 12/28/21 12/29/21 12/29/21 23:59 07:59 15:59 Intake Total 890 390 Balance 890 390 Post-procedural complaints: none Patient Feedback: Patient satisfied with anesthetic care.
[2021-12-29] MEDS: SENNA/DOCUSATE SODIUM TABLET 2 TAB PO (08:44)
[2021-12-29] MEDS: polyethylene glycoL 3350 17 GM POWD.PACK PO (08:44)
[2021-12-29] MEDS: lisinopriL 20 MG TABLET PO (08:44)
[2021-12-29] MEDS: oxyCODONE HCL (*CRX) 5 MG TAB IR PO (08:44)
[2021-12-29] MEDS: CYCLOBENZAPRINE HCL 10 MG TABLET PO (08:44)
[2021-12-29] MEDS: FAMOTIDINE 20 MG TABLET PO (08:45)
[2021-12-29] MEDS: hydroCHLOROthiazide 25 MG TABLET PO (08:45)
[2021-12-29] MEDS: ASPIRIN 81 MG ENTERIC TABLET PO (08:45)
[2021-12-29] MEDS: CELECOXIB 200 MG CAPSULE PO (08:45)
[2021-12-29] MEDS: amLODIPine BESYLATE 5 MG TABLET 10 MG PO (08:45)
[2021-12-29 10:10] VITALS: BP 118/66; PULSE 95; RESP 16; TEMP 37.3; O2SAT 99
[2021-12-29 14:15] VITALS: BP 117/65; PULSE 91; RESP 16; TEMP 36.6; O2SAT 100
--- NOTE | 2021-12-29 15:36 | PM.PNORT ---
Progress Note: A&P Assessment and Plan (1) Status post reverse total arthroplasty of left shoulder: Code(s): Z96.612 - Presence of left artificial shoulder joint Status: Acute Assessment and Plan: Patient seen and examined. Progressing well. Neurovascular status intact. Fires the deltoid. Postoperative day 1 status post left reverse total shoulder. Okay to be discharged. Restrictions reviewed. Subjective Subjective Date/Time Seen: 12/29/21 15:36 Objective Data Vital Signs Vital Signs: Vital Signs - 24 hr 12/28/21 17:54 12/28/21 20:44 12/29/21 00:33 Temperature 37.1 C 36.9 C 36.6 C Pulse Rate 98 89 87 Respiratory Rate 16 18 18 Blood Pressure 110/65 90/48 L 121/48 L Pulse Oximetry 97 97 99 12/29/21 05:00 12/29/21 10:10 12/29/21 14:15 Temperature 36.3 C L 37.3 C 36.6 C Pulse Rate 81 95 91 Respiratory Rate 20 16 16 Blood Pressure 127/68 118/66 117/65 Pulse Oximetry 100 99 100 Intake/Output Intake/Output: Intake & Output 12/26/21 12/27/21 12/28/21 12/29/21 23:59 23:59 23:59 23:59 Intake Total 1680 750 Balance 1680 750 Meds/Results Medications: Active Medications Generic Name Dose Route Start Last Admin Trade Name Freq PRN Reason Stop Dose Admin Acetaminophen 1,000 mg 12/29/21 06:00 Acetaminophen 500 Mg Tablet PO Q6H PRN Pain Rated 1-3 Amlodipine Besylate 10 mg 12/28/21 11:09 12/29/21 08:45 Amlodipine Besylate 5 Mg Tablet PO 10 mg DAILY CHAVA Administration Aspirin 81 mg 12/28/21 11:09 12/29/21 08:45 Aspirin 81 Mg Enteric Tablet PO 81 mg BID CHAVA Administration Celecoxib 200 mg 12/28/21 11:09 12/29/21 08:45 Celecoxib 200 Mg Capsule PO 200 mg DAILY CHAVA Administration Cyclobenzaprine HCl 10 mg 12/28/21 11:09 12/29/21 08:44 Cyclobenzaprine Hcl 10 Mg Tablet PO 10 mg DAILY CHAVA Administration Diphenhydramine HCl 25 mg 12/28/21 11:09 Diphenhydramine Hcl Inj 50 Mg/Ml Vial IV PUSH Q6H PRN Itching Famotidine 20 mg 12/28/21 11:09 12/29/21 08:45 Famotidine 20 Mg Tablet PO 20 mg Q12HR CHAVA Administration Hydrochlorothiazide 25 mg 12/28/21 11:30 12/29/21 08:45 Hydrochlorothiazide 25 Mg Tablet PO 25 mg DAILY CHAVA Administration Lisinopril 20 mg 12/28/21 11:09 12/29/21 08:44 Lisinopril 20 Mg Tablet PO 20 mg DAILY CHAVA Administration Naloxone HCl 0.1 mg 12/28/21 11:09 Naloxone Hcl 0.4 Mg/Ml Vial IV PUSH Q2M PRN Opiate Reversal Ondansetron HCl 4 mg 12/28/21 11:09 Ondansetron Inj 4 Mg/2 Ml Vial IV PUSH Q4H PRN Nausea And Vomiting Oxycodone HCl 5 mg 12/28/21 11:09 12/29/21 08:44 Oxycodone Hcl (*Crx) 5 Mg Tab Ir PO 5 mg Q4H PRN Administration Pain Rated 4-6 Oxycodone HCl 10 mg 12/28/21 11:09 Oxycodone Hcl (*Crx) 5 Mg Tab Ir PO Q4H PRN Pain Rated 7-10 Polyethylene Glycol 17 gm 12/28/21 11:09 12/29/21 08:44 Polyethylene Glycol 3350 17 Gm Powd.Pack PO 17 gm QAM CHAVA Administration Senna/Docusate Sodium 2 tab 12/28/21 11:09 12/29/21 08:44 Senna/Docusate Sodium Tablet PO 2 tab BID CHAVA Administration Radiology Results: ITS Impressions Shoulder X-Ray 12/28/21 10:47 IMPRESSION: 1. Expected appearance post reverse left total shoulder arthroplasty. 2. New bandlike opacity in the left midlung zone suggesting discoid atelectasis although pneumonia not excludable.
== END 2021-12-29 16:07 | disposition home or self-care (01) ==
LOC: ANHSURGERY 05:51 → ANH2MED 11:16
PROVIDERS: PCP Family Medicine; Visit Provider Orthopaedic Surgery
PROC: (CPT 23472; principal; 2021-12-28 07:30)
DX: M19.012 Primary osteoarthritis, left shoulder (principal); I10 Essential (primary) hypertension; G89.18 Other acute postprocedural pain; E66.9 Obesity, unspecified; Z68.34 Body mass index [BMI] 34.0-34.9, adult
CPT/HCPCS: 23472; 64415; 36415; 73030; 80048; 85025; 86850; 86900; 86901; 87081; 97110; 97161; 97165; 97530; 97535; A4565; A9270; C1776; C9803; J0131; J0171; J0330; J0690; J1100; J1885; J2250; J2270; J2370; J2405; J2704; J2795; J3010; J3370; J7030; J7120; U0003; U0005